=== PATIENT | female | born 1990 | race Caucasian/White ===

== ENCOUNTER 2018-04-22 21:03 | Outpatient (CLI) | payer OTHER ==
[2018-04-22 21:50] VITALS: BP 114/65; PULSE 78; RESP 16; TEMP 98.1
--- NOTE | 2018-05-03 07:42 | P.MSEPDOC ---
Presenting Problems - Arrival Data Date of Arrival on Unit: 04/22/18 Time of Arrival on Unit: 21:03 Mode of Transport: Wheelchair - Complaint OB-Reason for Admission/Chief Complaint: Possible Onset of Labor Comment: Patient states she has a history of at vaginal delivery at 27 weeks with her last baby, states she has been having mak pascual contractions for a few weeks now, but that today she noticed they were increased in frequency, states she was nervous because of her last delivery so just wanted to come in for peace of mind. Medical History - Information : 2 Para: 1 Term: 0 : 1 Abortions: Spontaneous or Elective: 0 Number of Living Children: 1 - Gestational Age Gestational Age by KAREN (wks/days): 24 Weeks and 3 Days - History Complications: Prior Review of Systems - Review of Systems Constitutional: No problems Breast: No problems ENT: No problems Cardiovascular: No problems Respiratory: No problems Gastrointestinal: No problems Genitourinary: No problems Musculoskeletal: No problems Neurological: No problems Skin: No problems Vital Signs - Temperature Temperature: 98.1 F Temperature Source: Temporal Artery Scan - Pulse Pulse Oximetery Pulse Rate: 78 Pulse Assessment Method: Pulse Oximetry - Respirations Respiratory Rate: 16 Oxygen Delivery Method: Room Air - Blood Pressure Sitting Blood Pressure: 114/65 Blood Pressure Mean: 81 Blood Pressure Source: Automatic Cuff Medical Screen Scoring (Pre) - Cervical Exam Dilation: 0 cm = 0 Membranes: Intact - Uterine Contractions Frequency: > 5 minutes apart = 1 Duration: > 40 seconds = 2 Intensity: N/A - Maternal Vital Signs Maternal Temperature: N/A Maternal Blood Pressure: N/A Signs of Preeclampsia: N/A Maternal Respirations: N/A - Total Score Total Score (Pre): 3 - Level of Risk Level of Risk: Low (0-5) Physician Notification (Pre) - Physician Notified Physician Notified Date: 04/22/18 Physician Notified Time: 21:15 Physician/Practitioner Notifed:: Dr. Perkins New Order Received: Yes - Notification Comment Comment: Collect and send FFN, and check cervix, if ffn is negative and patient is not prema okay to discharge patient home with instructions, if ffn postive call physician with report. Instruct patient to take a stool softener to help with increased constipation, but avoid a laxative. Medical Screen Scoring (Post) - Cervical Exam Dilation: 0 cm = 0 Membranes: Intact - Uterine Contractions Frequency: < 36 weeks = 6 Duration: > 40 seconds = 2 Intensity: N/A - Maternal Vital Signs Maternal Temperature: N/A Maternal Blood Pressure: N/A Signs of Preeclampsia: N/A Maternal Respirations: N/A - Total Score Total Score (Post): 8 - Post Treatment Level of Risk Post Treatment Level of Risk: Medium (6-9) Physician Notification (Post) - Physician Notified Physician Notified Date: 04/22/18 Physician Notified Time: 22:50 Physician/Practitioner Notified:: DR PERKINS New Order Received: Yes Disposition - Disposition OB Disposition: Discharge to home, Written follow up instructions reviewed Discharge Date: 04/22/18 Discharge Time: 23:00 I agree with the RN Medical Screening Exam: Yes Risk & Benefit of care provided described in d/c instruction: Yes Diagnosis: FALSE LABOR BEFORE 37 COMPLETED WEEKS OF GEST, UNSP TRI
== END 2018-04-22 23:00 | disposition home or self-care (01) ==
LOC: FBPOP 21:03
PROVIDERS: ATTEND Obstetrics & Gynecology
DX: O47.02 False labor before 37 completed weeks of gestation, second trimester (principal); Z3A.24 24 weeks gestation of pregnancy
CPT/HCPCS: 82731; G0463; 99213

== ENCOUNTER 2018-06-29 11:53 | Outpatient (CLI) | payer OTHER ==
[2018-06-29] MEDS ORDERED: BETAMET ACET-BETAMETH SOD PHOS 6 MG/ML VIAL IM SCH (12:30)
[2018-06-29] MEDS ORDERED: LACTATED RINGERS 1,000 ML IV ONE (12:30)
[2018-06-29 12:59] LABS: Basophils % (A) 0 %; Eosinophils # (A) 0.2 k/uL (0-0.7); Eosinophils % (A) 2 %; HCT 35.9 % (34.0-46.0); HGB 11.9 gm/dL (11.4-16.0); Lymphocytes % (A) 18 %; MCH 33.2 pg (25.0-35.0); MCHC 33.2 g/dL (31.0-37.0); MCV 99.9 fL (80.0-100.0); Mean Platelet Volume 7.6; Monocytes # (A) 0.6 k/uL (0-1.0); Monocytes % (A) 5 %; Neutrophils # (A) 8.5 k/uL (1.3-7.7); Neutrophils % (A) 74 %; Platelet Count 316 k/uL (150-450); RDW 12.3 % (11.5-15.5); WBC 11.5 k/uL (3.8-10.6)
[2018-06-29] MEDS ORDERED: MAGNESIUM SULFATE-WATER PMX 4 GM in WATER FOR INJECTION 1 50ML.BAG IVPB STA (13:01)
[2018-06-29] MEDS ORDERED: CALCIUM CHLORIDE 500 MG in SODIUM CHLORIDE 0.9% 50 ML IVPB ONE (13:01)
--- NOTE | 2018-06-29 13:12 | P.HPOB ---
History of Present Illness H&P Date: 06/29/18 Chief Complaint: Back pain This is a 29-year-old white female 2 para 0101 EDC 08/09/2018 at 34-2/7 weeks' gestation. Patient presents today with a complaint of back pain which started last night. She denies fluid leakage or vaginal bleeding. Fetus is been active throughout the . The back pain is mild to moderate in nature, she denies any obvious uterine contractions. Past medical history is significant for attention deficit disorder and MTHFR, factor V Leiden. Past surgical history none recorded. Current medications Adderall XL 20 mg capsules daily, vitamin daily, 17 hydroxyprogesterone injections weekly. ALLERGIES none known. Family history significant for factor V Leiden disorder and hypertension. Reproductive history significant for 28 week vaginal delivery male infant, 2 lbs. 14 oz., rapid delivery noted. Social history patient is a long-term tobacco smoker, currently one half pack per day. She is single, boyfriend and father of the baby is involved. She denies alcohol or drug use. history is significant for blood type B+, rubella status immune. Patient had an abnormal Pap smear noted in , high grade LEONELA. Colposcopy was performed along with colposcopically directed biopsies, repeat colposcopy in the third trimester was stable. Chlamydia and gonorrhea cultures negative, HIV, hepatitis B surface antigen, urine culture all negative. On exam this is a pleasant white female, she is 5 foot 7 inches, 150 pounds, vital signs are stable and she is afebrile. The general physical exam is within normal limits. The cervix is 4 cm dilated, very posterior, 70% effaced, -1 station, vertex presentation, intact. heart rate is consistent with reactive NST. Impression: 34-2/7 weeks intrauterine , labor, no cervical change noted over the course of 45 minutes. Plan: Betamethasone has been given. Magnesium sulfate 4 g loading dose is given. I believe it is in the patient's best interest to transfer to Tertiary Care facility, [facility] contacted. The case has been discussed with , maternal- medicine specialist, who is accepting transfer. Muniz catheter will be placed. Penicillin G will be given prior to transfer. She is aware of the risks and benefits of transfer to tertiary care center, including rapid delivery in the ambulance which I believe is highly unlikely. Patient accepts the risks and transfer to [facility]. Review of Systems Negative except as in HPI Past Medical History Past Medical History: No Reported History Additional Past Medical History / Comment(s): MTHFR, ADD, HGSIL on pap smear and colposcopy. History of Any Multi-Drug Resistant Organisms: None Reported Past Surgical History: No Surgical Hx Reported Past Anesthesia/Blood Transfusion Reactions: No Reported Reaction Smoking Status: Never smoker - Past Family History Mother Family Medical History: No Reported History Medications and Allergies Home Medications Medication Instructions Recorded Confirmed Type Lbs-Tnva-Ixekr Acid 1 cap PO DAILY 03/12/16 06/29/18 History [-U Capsule] Polyethylene Glycol 3350 [Miralax] 17 gm PO DAILY 04/22/18 06/29/18 History Progesterone, Micronized 1 mg IM WEEKLY 04/22/18 06/29/18 History [Progesterone] Dextroamphetamine/Amphetamine 10 mg PO DAILY 06/29/18 06/29/18 History [Adderall] Allergies Allergy/AdvReac Type Severity Reaction Status Date / Time No Known Allergies Allergy Verified 06/29/18 12:00 Exam Intake and Output 06/28/18 06/29/18 06/29/18 22:59 06:59 14:59 Other: Weight 64.41 kg See dictation under HPI please Assessment and Plan Assessment: Transfer to [facility], under the care of maternal medicine specialist . All risks and benefits of transfer of care are discussed with the patient. I believe she is stable for transfer at this time. Betamethasone has been given. Magnesium sulfate will continue to run at 2 g per hour, penicillin G 5,000,000 units. Time with Patient: Greater than 30 (34-2/7 weeks intrauterine , labor, stable for transfer.)
[2018-06-29] MEDS ORDERED: MAGNESIUM SULFATE-WATER PMX 20 GM in WATER FOR INJECTION 1 500ML.BAG IV SCH (13:15)
[2018-06-29] MEDS ORDERED: PENICILLIN G POTASSIUM 5,000,000 UNIT in DEXTROSE 5% IN WATER 100 ML IVPB STA ×2 (13:18)
[2018-06-29] MEDS ORDERED: LACTATED RINGERS 1,000 ML IV SCH (13:30)
== END 2018-06-29 14:00 ==
LOC: FBPOP 11:53
PROVIDERS: ATTEND Obstetrics & Gynecology
DX: O99.89 Other specified diseases and conditions complicating pregnancy, childbirth and the puerperium (principal); M54.9 Dorsalgia, unspecified; Z3A.34 34 weeks gestation of pregnancy
CPT/HCPCS: 59025; 96361; 96365; 96367; 96372; 85025; G0463; J0702; J3475 ×2; J2540; 99215

== ENCOUNTER 2018-11-30 08:04 | Day surgery (SDC) | payer OTHER ==
[2018-11-19 12:00] VITALS: BMI 20.3
--- NOTE | 2018-11-29 14:08 | HP ---
HISTORY AND PHYSICAL REASON FOR ADMISSION: Surgery scheduled 11/30/2018 HISTORY OF PRESENT ILLNESS: This is a 29-year-old female who presents with a history of abnormal Pap smear. Cervical biopsies at 8 o'clock, 10 o'clock, and 12 o'clock along with endocervical curettage are all positive for high-grade squamous intraepithelial lesion. Patient's is planning a vasectomy, no further childbearing is anticipated. After thorough consultation, we have elected to proceed with cold knife conization and endocervical curettage. All questions have been answered, all risks and benefits thoroughly reviewed. REVIEW OF SYMPTOMS: Review of systems is otherwise negative. PAST MEDICAL HISTORY: Past medical history is significant for attention deficit disorder, and positive for MTHFR. PAST SURGICAL HISTORY: Past surgical history is significant for colposcopy. MEDICATIONS: Current medications Adderall 10 mg daily, Adderall XL 20 mg tablet daily, and vitamin daily. ALLERGIES: Allergies none known. FAMILY HISTORY: Family history is significant for Factor 5 Leiden deficiency, clotting disorder, and hypertension. REPRODUCTIVE HISTORY: Is significant for vaginal deliveries in 2016, in 2018. 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 She is not , boyfriend is active in her life. She is previously a 1/2 pack per day tobacco smoker but decrease tobacco use to approximately 3 cigarettes daily. She denies alcohol or drug use. PHYSICAL EXAMINATION: On exam, this is a pleasant white female, she is 139 pounds, blood pressure is 100/68. HEENT exam reveals no thyromegaly, no cervical lymphadenopathy, normal range of motion of the neck. Breasts are bilaterally symmetric to inspection with no skin dimpling, nipple discharge, axillary adenopathy or discernible lesions or masses. Chest is clear to auscultation in all bolivar anteriorly and posteriorly. Cardiac exam reveals regular rate and rhythm with no murmur, click, or rub. Abdomen is soft, nontender, no hepatosplenomegaly. Active bowel sounds. On pelvic examination, external genitalia is age-appropriate with no unusual discharge or odor. The cervix is multiparous in appearance and irregular to inspection. Uterus is small, mobile, anteverted, anteflexed, adnexa are negative bilaterally. IMPRESSION: High-grade squamous intraepithelial lesion noted on multiple cervical biopsies, along with positive endocervical curettage for high-grade LEONELA. Patient requesting cold knife conization. PLAN: We will proceed with cold knife conization at [facility]. She is aware of the risks of cervical incompetence, infection, bleeding, perforation or damage to bladder or bowels. Again, her partner is planning vasectomy and no further child bearing is anticipated. Second opinion has been offered and declined. Risks of anesthesia to include aspiration, nerve damage, and even have all been reviewed. MMODL / IJN: [id number] /
[~2018-11-30 08:04] MED LIST: DEXAMETHASONE SOD PHOSPHATE 10 MG/ML 1 ML VIAL IV ONE; LACTATED RINGERS 1,000 ML IV SCH; MORPHINE SULFATE 4 MG/ML SYRINGE IV PRN; ONDANSETRON 4 MG/2 ML VIAL IVP ONE; ONDANSETRON 4 MG/2 ML VIAL IVP PRN
[2018-11-30] MEDS ORDERED: fentaNYL (PF) 50 MCG/ML 2 ML AMP ONE (10:12)
[2018-11-30] MEDS ORDERED: PROPOFOL 10 MG/ML 20 ML VIAL IV ONE (10:12)
[2018-11-30] MEDS ORDERED: KETOROLAC 30 MG/ML 1 ML VIAL ONE (10:12)
[2018-11-30] MEDS ORDERED: MIDAZOLAM 2 MG/2 ML VIAL ONE (10:12)
[2018-11-30] MEDS ORDERED: LIDOCAINE 1% INJ 10MG/ML (20 ML MDV) ONE (10:12)
[2018-11-30] MEDS ORDERED: VASOPRESSIN 20 UNIT/ML 1 ML VIAL SQ ONE (10:28)
[2018-11-30] MEDS ORDERED: IODINE/POTASS IOD (LUGOLS) BTL TOPICAL ONE (10:32)
[2018-11-30] MEDS ORDERED: ACETIC ACID 15 DROPS/ML DROPS MISCELLANE ONE (10:32)
[2018-11-30] MEDS ORDERED: FERRIC SUBSULFATE (MONSELS) JAR TOPICAL ONE (10:39)
--- NOTE | 2018-11-30 10:42 | P.OP ---
Date of Procedure: 11/30/18 Preoperative Diagnosis: High-grade squamous intraepithelial lesion on the cervix, multiple sites, positive ECC Postoperative Diagnosis: Pathology pending Procedure(s) Performed: Cold knife conization, endocervical curettage Anesthesia: JAMEL Surgeon: Gianna Barron Estimated Blood Loss (ml): 20 IV fluids (ml): 500 Urine output (ml): 150 Pathology: other (Cervix tagged at 6:00, endocervical curettings.) Condition: stable Disposition: PACU Description of Procedure: Patient is brought to the operating suite where a general anesthetic is administered. She's placed in the dorsal lithotomy position. Urine hCG is negative. The appropriate timeout is performed to assure proper patient and procedural identification. The bladder is drained for 150 mL of clear yellow urine. Weighted speculum was placed into the vagina. Anterior lip of the cervix is grasped with a double-tooth tenaculum. The cervix is injected circumferentially with a dilute Pitressin solution, 10 mL total being used. 0 Vicryl sutures then used on either side of the cervix, from 2:00 to 4:00 tied and held, from 8:00 to 10:00, tied and held laterally. Lugol's solution is used on the surface of the cervix. A scalpel is used to incise the conization specimen, circumferentially, it is removed and suture tied at 6:00 and sent to pathology. Endocervical curettage is then performed on remaining endocervix. Electrocautery is used to cauterize the entire base of the cervix remaining. Monsel solution is used. Stay stitches are removed. Hemostasis is excellent. Patient is brought back to recovery room in stable condition with a blood pressure 90/40, pulse 48. All sponge needle and enhancement counts are correct. She is given Toradol prior to leaving the operative suite. She will follow-up with me in the office in 2 weeks.
[2018-11-30 10:54] VITALS: TEMP 97.7
[2018-11-30 10:56] VITALS: RESP 16
[2018-11-30 11:59] VITALS: BP 119/67; PULSE 54
== END 2018-11-30 12:14 | disposition home or self-care (01) ==
LOC: OR 08:04
PROVIDERS: ATTEND Obstetrics & Gynecology
DX: D06.0 Carcinoma in situ of endocervix (principal); F98.8 Other specified behavioral and emotional disorders with onset usually occurring in childhood and adolescence; E72.12 Methylenetetrahydrofolate reductase deficiency; Z79.899 Other long term (current) drug therapy; F17.210 Nicotine dependence, cigarettes, uncomplicated
CPT/HCPCS: 57520; 81025; 88305; 88307; J2250; J1100; J2405; J2001; J3010; J1885; J2704